=== PATIENT | male | born 1980 | race Caucasian/White ===

== ENCOUNTER 2016-03-16 08:16 | Emergency (ER) | payer SELFPAY | END 2016-03-16 10:00 | disposition home or self-care (01) | LOC: D.ER 08:16 | DX: S43.402A Unspecified sprain of left shoulder joint, initial encounter (principal); X58.XXXA Exposure to other specified factors, initial encounter; Y93.89 Activity, other specified; Y92.013 Bedroom of single-family (private) house as the place of occurrence of the external cause; L25.9 Unspecified contact dermatitis, unspecified cause ==

== ENCOUNTER 2016-06-02 10:45 | Emergency (ER) | payer MEDICAID ==
[2016-06-18] MEDS ORDERED: HYDROCODONE-APA1 TAB PO (13:25)
[2016-06-18] MEDS ORDERED: VALIUM5 MG PO (13:25)
[2016-06-18] MEDS ORDERED: ADIPEX-P37.5 M1 PO (13:26)
[2016-06-18] MEDS ORDERED: NAPROSYN500 MG PO (13:27)
[2016-06-21 08:32] VITALS: BMI 29.9
== END 2016-06-02 17:07 | disposition home or self-care (01) ==
LOC: D.ER 10:45
DX: M25.512 Pain in left shoulder (principal)

== ENCOUNTER 2016-06-21 05:16 | Day surgery (SDC) | payer MEDICAID ==
[~2016-06-21] VITALS: Ht 175.3 cm; Wt 91.6 kg
--- NOTE | ~2016-06-21 | OP ---
PATIENT NAME: ANNABELLE YU MEDICAL RECORD: [id number] :84 LOCATION:D[facility] ADMISSION DATE: SURGEON: BI BAH MD DATE OF OPERATION: 06/21/2016 Orthopedic Surgery Operative Note PREOPERATIVE DIAGNOSIS: Chronic instability of the left shoulder. POSTOPERATIVE DIAGNOSIS: Chronic instability of the left shoulder. PROCEDURES: 1. Shoulder arthroscopy for diagnostics. 2. Open Bankart repair. SURGEON: Bi Bah M.D. ANESTHESIA: General. INTRAOPERATIVE COMPLICATIONS: None. SUMMARY OF PATHOLOGIC FINDINGS: The patient's previously placed anterior anchors had completely pulled out. The patient had sustained further dislocations. OPERATIVE SUMMARY IN DETAIL: After obtaining the appropriate preoperative orthopedic surgical consents as well as anesthetic consultation, evaluation and clearance, the patient was brought to the operating room and placed on the operating table in supine position. After general laryngeal mask was administered, the patient was placed in the beach chair position. All pressure points were well padded to include down leg peroneal pad as well as axillary roll. The patient was held firmly to the operating table using the vacuum pack suction system. Left upper extremity and shoulder were then prepped and draped in routine sterile fashion. The arm was held in the Trimano arm holding device. Arthroscopy was established in the glenohumeral joint from a posterior portal. Diagnostic arthroscopy did reveal the patient to have a Hill-Sachs lesion, primarily soft tissue Bankart repair, more in lines ____ lesion, with a deep with very profound drive thru. Attention was then turned to the open part of the case. Deltopectoral incision was taken down to the clavipectoral fascia, it was incised. The deltoid brown retractor was utilized to hold the deltoid laterally. Conjoined tendon was gently retracted medially. Subscapularis was taken off the capsule. Care was taken to create the 2 planes of tissue. The subscapularis was then reflected and the capsule was taken off. Humeral head was held back in place by the ____ while three 2.9 SutureTak from Ar[employer] were placed at the 5 o'clock, 7 o'clock and 9 o'clock position. These were then passed through the capsule with the capsule being held extremely tight using a lasso. These were tied on the posterior side, recreating a bumper and tying in the front of the shoulder. Next, the capsule was reapproximated back to the lesser tuberosity with two 4.75 SwiveLocks while being held tight with the arm internally rotated. Having completed this, the subscapularis was reapproximated transosseously and at the rotator cuff interval using #2 FiberWire. Lastly, the wound was copiously irrigated and closed with #1 Vicryl, followed by 2-0 Vicryl, and skin mary. The arthroscopic portal posteriorly was closed with 4-0 Prolene. Sterile dressings were applied. The patient was awakened, taken to recovery room in stable condition. All final needle and sponge counts were OPERATIVE REPORT [id number] ANNABELLE YU. TRANSINT:[id number] Voice Confirmation ID: [id number] DOCUMENT ID: [id number] OLVIN COTTON, BI CASH CC: [id number] DICTATION DATE: 06/21/16 1156 MANAGER MEAT: 06/21/[address] [facility] 06/21/16 [id number] [place] [address]
[~2016-06-21 05:16] MED LIST: ADIPEX-P37.5 M1 PO; HYDROCODONE-APA1 TAB PO; NAPROSYN500 MG PO; VALIUM5 MG PO
[2016-06-21 08:32] VITALS: BP 127/68; Ht 175.3 cm; Wt 91.6 kg
--- NOTE | 2016-06-21 08:56 | NUR ---
0850 PATIENT VERY DROWSY.
[2016-06-21] MEDS ORDERED: PERCOCET 10/3251 TA1 PO (11:58)
--- NOTE | 2016-06-21 15:08 | NUR ---
1400 DISCHARGE INSTRUCTIONS AND ELBOW FLEXION REVIEWED WITH PATIENT; VERBALIZED UNDERSTANDING
== END 2016-06-21 14:00 | disposition home or self-care (01) ==
LOC: D.OPS 05:16 → D.PAN 16:30
DX: M25.312 Other instability, left shoulder (principal); M24.412 Recurrent dislocation, left shoulder

== ENCOUNTER 2018-02-13 11:19 | Emergency (ER) | payer MEDICAID ==
[~2018-02-13] VITALS: Ht 175.3 cm; Wt 97.5 kg
[~2018-02-13 11:19] MED LIST changes: +PERCOCET 10/3251 TA1 PO
[2018-02-13 11:27] VITALS: BP 170/109; Ht 175.3 cm; Wt 97.5 kg
[2018-02-13] MEDS ORDERED: VOLTAREN75 MG PO (14:40)
== END 2018-02-13 15:04 | disposition home or self-care (01) ==
LOC: D.ER 11:19
DX: M25.512 Pain in left shoulder (principal)

== ENCOUNTER 2018-03-13 00:51 | Emergency (ER) | payer MEDICAID ==
[~2018-03-13] VITALS: Ht 175.3 cm; Wt 100.0 kg
[~2018-03-13 00:51] MED LIST changes: +VOLTAREN75 MG PO
[2018-03-13 00:54] VITALS: Ht 175.3 cm; Wt 100.0 kg
[2018-03-13 03:06] VITALS: BP 138/79
== END 2018-03-13 03:05 | disposition home or self-care (01) ==
LOC: D.ER 00:51
DX: F41.9 Anxiety disorder, unspecified (principal); F32.9 Major depressive disorder, single episode, unspecified; F43.10 Post-traumatic stress disorder, unspecified; X58.XXXA Exposure to other specified factors, initial encounter; Y93.89 Activity, other specified; Y92.89 Other specified places as the place of occurrence of the external cause; F17.200 Nicotine dependence, unspecified, uncomplicated

== ENCOUNTER 2018-03-23 09:15 | Day surgery (SDC) | payer MEDICAID ==
[~2018-03-23] VITALS: Ht 175.3 cm; Wt 102.1 kg
[~2018-03-23 09:15] MED LIST changes: +ALEVE220 MG PO; +CYCLOBENZAPRINE10 MG PO
[2018-03-23 09:35] VITALS: BP 137/77; Ht 175.3 cm; Wt 102.1 kg
[2018-03-23] MEDS ORDERED: OXYCODONE-APAP1 TAB PO (15:10)
--- NOTE | 2018-03-27 08:29 | OP ---
PATIENT NAME: ANNABELLE YU MEDICAL RECORD: [id number] :84 LOCATION:[facility] ADMISSION DATE: SURGEON: BI BAH MD DATE OF OPERATION: 03/23/2018 PREOPERATIVE DIAGNOSES: 1. Residual severe biceps tendinitis. 2. Rotator cuff tear. POSTOPERATIVE DIAGNOSES: 1. Residual severe biceps tendinitis. 2. Rotator cuff tear. PROCEDURE: 1. Left shoulder arthroscopic rotator cuff repair. 2. Left shoulder biceps tenotomy. SURGEON: Bi Bah MD ANESTHESIA: General. INTRAOPERATIVE COMPLICATIONS: None. SUMMARY OF PATHOLOGIC FINDINGS: The patient had essentially complete tears of the biceps tendon, I felt like that given the amount of tendinopathy that was seen in the bicipital groove it was better to do complete tenotomy rather than a tenodesis. The patient did have a full thickness rotator cuff tear as seen from the undersurface as well as the superior surface, very small, but very real, no residual AC arthropathy or impingement was noted. OPERATIVE SUMMARY IN DETAIL: After obtaining the appropriate preoperative orthopedic surgery consent as well as anesthetic consultation, evaluation, and clearance, the patient was brought to the operating room and placed on the operating table in supine position. After general laryngeal mask airway was administered, the patient was placed in a right lateral decubitus position. All pressure points were well padded to include down leg peroneal pad as well as axillary roll. The patient was held firmly to the operating table using the vacuum pack suction system. The patient's left upper extremity and shoulder were then prepped and draped in routine sterile fashion. The arm was held in the traction boom at 30 degrees of forward flexion, 30 degrees of abduction, 10 pounds of traction laterally. Arthroscopy was established in the glenohumeral joint from the posterior portal. Anterior portal was established from the anterior safe interval. After diagnostic arthroscopy was performed, Arthrex tissue ablation device was utilized to release the biceps tendon at the bicipital labral junction. Having completed this, a transarthroscopic rotator cuff tear portal was created for debridement of the articular aspect of the supraspinatus tendinous footprint as well as debridement of attritional tearing of the rotator cuff fibers. Attention was then turned to the subacromial space. While in the subacromial space, further decortication was carried out. No impingement was noted. An inverted #1 FiberTape was then placed in the rotator cuff tear in a mattress fashion. It was then anchored laterally with a single 4.75 SwiveLock from [employer]. Having completed this, arthroscopy portals were closed in routine interrupted fashion using 4-0 Prolene. Sterile dressings were applied. The patient was awakened and taken to the recovery room in stable condition. All final needle and sponge counts were correct. OPERATIVE REPORT [id number] ANNABELLE YU TRANSINT:[id number] Voice Confirmation ID: [id number] DOCUMENT ID: [id number] OLVIN COTTON, BI CASH at 0829 CC: [id number] DICTATION DATE: 03/24/18 1002 MODELING MANAGER: 03/24/[address] [facility] 03/23/18 [address] [place] [address]
== END 2018-03-23 17:10 | disposition home or self-care (01) ==
LOC: D.OPS 09:15 → D.PAN 11:30 → D.OPS 14:15 → D.PAN 14:15 → D.OPS 17:10
DX: M75.22 Bicipital tendinitis, left shoulder (principal); M75.122 Complete rotator cuff tear or rupture of left shoulder, not specified as traumatic; Z01.812 Encounter for preprocedural laboratory examination

== ENCOUNTER → 2019-02-16 08:19 | Outpatient (CLI) | payer MEDICAID ==
[2018-03-23 09:35] VITALS: BMI 33.3
[~2019-02-16 08:19] MED LIST changes: +OXYCODONE-APAP1 TAB PO
== END | disposition home or self-care (01) ==
LOC: D.RAD 08:19
PROVIDERS: ATTEND Clinical Nurse Specialist Family Health
DX: M25.519 Pain in unspecified shoulder (principal)

== ENCOUNTER → 2019-02-23 09:48 | Outpatient (CLI) | payer MEDICAID ==
[2018-03-23 09:35] VITALS: BMI 33.3
== END | disposition home or self-care (01) ==
LOC: D.MRI 09:48
PROVIDERS: ATTEND Clinical Nurse Specialist Family Health
DX: M54.12 Radiculopathy, cervical region (principal)